=== PATIENT | female | born 1985 | race Caucasian/White ===

== ENCOUNTER 2017-07-02 12:45 | Outpatient (CLI) | payer OTHER ==
[2017-07-02] MEDS ORDERED: IOPAMIDOL-300 50 ML VIAL ONE (13:11)
[2017-07-02] MEDS ORDERED: IOPAMIDOL-300 100 ML VIAL ONE (14:36)
[2017-07-02] MEDS ORDERED: IOPAMIDOL-300 50 ML VIAL PO ONE (15:34)
[2017-07-02] MEDS ORDERED: IOPAMIDOL-300 100 ML VIAL IVP ONE (15:36)
--- NOTE | 2017-07-03 04:44 | CT Report ---
EXAM: CT ABDOMEN AND PELVIS EXAM DATE: 07/02/2017 03:10 PM. CLINICAL HISTORY: ABDOMINAL PAIN. COMPARISONS: None. TECHNIQUE: Routine helical CT imaging was performed through the abdomen and pelvis. IV contrast: Yes . Enteric contrast: Yes. Reconstructions: Coronal and sagittal. In accordance with CT protocol optimization, one or more of the following dose reduction techniques w ere utilized for this exam: automated exposure control, adjustment of mA and/or KV based on patient s ize, or use of iterative reconstructive technique. FINDINGS: Lung Bases: Unremarkable. Liver: Unremarkable. No suspicious masses. Gallbladder/Bile Ducts: Unremarkable. Spleen: Unremarkable. Pancreas: Unremarkable. Adrenal Glands: Unremarkable. Kidneys: Unremarkable. No suspicious masses or hydronephrosis. Peritoneal Cavity/Bowel: No bowel obstruction or inflammatory process seen. No free air or significan t free fluid. No masses or adenopathy. The appendix is normal. Moderate stool burden. Pelvic Organs: Bladder, uterus, and adnexa appear unremarkable. Vasculature: No aneurysms or other significant abnormality. Bones: No significant abnormality. Other: None. IMPRESSION: 1. No acute inflammatory or obstructive process seen in the abdomen or pelvis. 2. Moderate stool burden. [facility] Referring Provider Line: [phone] SITE ID: [id number]
== END 2017-07-02 12:46 | disposition home or self-care (01) ==
LOC: DI 12:45
PROVIDERS: ATTEND Family Medicine
DX: R10.9 Unspecified abdominal pain (principal)
CPT/HCPCS: 74177; Q9967

== ENCOUNTER 2017-12-06 08:12 | Day surgery (SDC) | payer OTHER ==
[2017-12-06] MEDS ORDERED: LACTATED RINGERS 1,000 ML IV ONE (08:40)
[2017-12-06 09:01] LABS: HCG UR QUAL NEGATIVE
[2017-12-06] MEDS ORDERED: LIDO GARGLE 30 ML BOTTLE ONE (09:45)
[2017-12-06] MEDS ORDERED: MIDAZOLAM 2 MG/2 ML VIAL IVP ONE (09:48)
[2017-12-06] MEDS ORDERED: fentaNYL 250 MCG/5 ML VIAL IVP ONE (09:48)
[2017-12-06] MEDS ORDERED: LIDO GARGLE 30 ML BOTTLE PO ONE (09:58)
[2017-12-06 10:48] VITALS: BP 110/54
== END 2017-12-06 08:13 | disposition home or self-care (01) ==
LOC: SDS 08:12
PROVIDERS: ATTEND Surgery
PROC: 0DB68ZX Excision of Stomach, Via Natural or Artificial Opening Endoscopic, Diagnostic (ICD-10-PCS; 2017-12-06)
PROC: 0DB98ZX Excision of Duodenum, Via Natural or Artificial Opening Endoscopic, Diagnostic (ICD-10-PCS; principal; 2017-12-06 09:15)
DX: R10.9 Unspecified abdominal pain (principal); K21.9 Gastro-esophageal reflux disease without esophagitis; R10.13 Epigastric pain
CPT/HCPCS: 43239; 81025; A9270; J3010; J7120

== ENCOUNTER 2019-04-10 13:26 | Outpatient (CLI) | payer OTHER ==
[2019-04-11 20:35] LABS: CANDIDA GROUP DNA NEGATIVE (NEGATIVE); CANDIDA KRUSEI DNA NEGATIVE (NEGATIVE); TRICHOMONAS VAGINALIS DNA NEGATIVE (NEGATIVE)
[2019-04-11 21:25] LABS: TRICHOMONAS VAGINALIS DNA NEGATIVE (NEGATIVE)
== END 2019-04-10 23:59 | disposition home or self-care (01) ==
LOC: LAB.R 13:26
PROVIDERS: ATTEND Nurse Practitioner Obstetrics & Gynecology
DX: Z11.3 Encounter for screening for infections with a predominantly sexual mode of transmission (principal); N76.0 Acute vaginitis
CPT/HCPCS: 87491; 87591; 87661; 87801